=== PATIENT | male | born 1975 | race Caucasian/White ===

== ENCOUNTER 2019-11-02 11:56 | Outpatient (CLI) | payer OTHER, SELFPAY ==
[2019-11-02 12:24] LABS: Hematocrit 46.2 % (42.0-52.0); Hemoglobin 14.8 g/dL (14.0-18.0); Immature Platelet Fraction Pct 13.5 % (0.9-11.2); Mean Corpuscular Hemoglobin 29.4 pg (26-34); Mean Corpuscular Volume 91.8 fl (80-100); Mean Platelet Volume 13.3 fl (7.4-10.4); Platelet Count Result 243 k/mm3 (150-375); Red Blood Count 5.03 M/mm3 (4.6-6.20); Red Cell Distribution Width 14.1 % (11.5-14.5); White Blood Count 8.3 K/mm3 (4.5-10.0)
[2019-11-02 12:30] LABS: Hemoglobin A1C 5.3 % (<5.7)
[2019-11-02 12:33] LABS: Alanine Aminotransferase 32 U/L (4-50); Albumin Level 4.3 g/dL (3.5-5.1); Alkaline Phosphatase 102 U/L (38-126); Aspartate Amino Transferase 35 U/L (17-59); Bilirubin,Total 0.4 mg/dL (0.2-1.3); Blood Urea Nitrogen 14 mg/dL (9-20); Calcium 8.8 mg/dL (8.4-10.2); Carbon Dioxide 32 mmol/L (22-30); Chloride 102 mmol/L (98-107); Cholesterol 180 mg/dL (0-200); Estimated Glomerular Filt Rate > 60; Glucose 86 mg/dL (75-110); HDL Direct 39 mg/dL; Potassium 4.3 mmol/L (3.4-5.0); Sodium 138 mmol/L (137-145); Triglycerides 162 mg/dL (<150)
[2019-11-02 12:42] LABS: NT Pro B Type Natriuretic Pept 40 PG/ML (5-100)
[2019-11-02 12:44] LABS: LDL Cholesterol Direct 99 mg/dL
--- NOTE | 2019-11-02 12:55 | ECG_ITS ---
Measurements Intervals [place] Rate: 89 P: 54 SC: 182 QRS: 23 QRSD: 99 T: 114 QT: 377 QTc: 459 Interpretive Statements SINUS RHYTHM ST-T WAVE ABNORMALITY IN HIGH LATERAL LEADS- CONSIDER ISCHEMIA ABNORMAL ECG Electronically Signed On 11-02-2019 13:23:32 CDT by Ayad Villalba D.O.
[2019-11-02 13:04] LABS: Prostate Specific Antigen 0.8 ng/mL (< OR = 4.0)
[2019-11-02 13:19] LABS: Vitamin D 25 Hydroxy 17.3 ng/mL
== END 2019-11-02 11:57 | disposition home or self-care (01) ==
PROVIDERS: PCP Family Medicine; Visit Provider Nurse Practitioner Family
DX: R60.9 Edema, unspecified (principal); R06.02 Shortness of breath; R53.83 Other fatigue; Z13.29 Encounter for screening for other suspected endocrine disorder; Z12.5 Encounter for screening for malignant neoplasm of prostate; Z13.220 Encounter for screening for lipoid disorders; I10 Essential (primary) hypertension; R73.09 Other abnormal glucose; R07.89 Other chest pain
CPT/HCPCS: 36415; 80053; 80061; 82306; 83036; 83880; 84153; 84443; 85027; 85055; 93005; G0103

== ENCOUNTER 2019-12-06 09:02 | Outpatient (CLI) | payer OTHER, SELFPAY ==
--- NOTE | 2019-12-06 | EST_ITS ---
Patient Info Name: Feliz Omalley Age: 44 years : 1975 Gender: Male Ht: 71 in Wt: 440 lbs BSA: 3.28 m2 Exam Date: 12/06/2019 11:26 AM Exam Location: [facility] Stress Patient Status: Outpatient Admit Date: 12/06/2019 Staff Ordering Physician: Froylan Flower NP Attending Provider: Froylan Flower NP Exercise Technologist: Felipa Ayala RDCS Exercise Physician: Ayad Villalba DO Exam Type: CA stress amy w NM Study Info Indications R94.31 - Abnormal electrocardiogram ECG EKG R07.9 - Chest pain, unspecified Summary 1. 1. Negative lexiscan stress test for ischemic ST changes by ECG criteria. 2. 2. Baseline hypertension. 3. 3. Nuclear scan to follow and will be reported separately. Please correlate with it. 4. 4. Patient informed of the above results. Protocol: Lexiscan Stress ECG Details Stage: REST Duration (min): 5 min : 10 sec HR (bpm): 82 SBP (mmHg): 147 DBP (mmHg): 97 Stage: REST Duration (min): 8 min : 39 sec HR (bpm): 82 SBP (mmHg): 147 DBP (mmHg): 97 Stage: STAGE 1 Duration (min): 1 min : 0 sec HR (bpm): 89 SBP (mmHg): 151 DBP (mmHg): 83 Stage: RECOVERY Duration (min): 1 min : 0 sec HR (bpm): 89 SBP (mmHg): 141 DBP (mmHg): 87 Stage: RECOVERY Duration (min): 2 min : 0 sec HR (bpm): 86 SBP (mmHg): 141 DBP (mmHg): 87 Stage: RECOVERY Duration (min): 3 min : 0 sec HR (bpm): 85 SBP (mmHg): 150 DBP (mmHg): 86 Stage: RECOVERY Duration (min): 3 min : 4 sec HR (bpm): 86 SBP (mmHg): 150 DBP (mmHg): 86 Rest HR: 82 bpm Peak HR: 94 bpm Rest Sys BP: 147 mmHg Peak Sys BP: 151 mmHg Max Pred HR: 174 bpm % Max Pred HR: 54 % Target HR: 148 bpm Max RPP: 14,194 bpm*mmHg Termination Reason: Completed protocol Cardiac Symptoms: None Total Time: 1 min : 0 sec Rest [place] BP: 97 mmHg Peak [place] BP: 83 mmHg Total Dose: 0.4 mg Resting ECG Sinus rhythm. Stress ECG No ST changes. Arrhythmias None. Report Signatures
--- NOTE | ~2019-12-06 | NM_ITS ---
EXAMINATION: NM stress w perf spect multi DATE: 12/06/2019 14:24 INDICATION: Other chest pain. TECHNIQUE: Rest images were obtained following intravenous administration of 10.5 mCi Tc99m tetrofosm in ([employer]). The patient performed an exercise activity. At peak exercise, 32.7 mCi Tc99m tetrofosmi n ([employer]) was administered intravenously, and stress images were obtained. Data was reconstructed i nto short axis and horizontal and vertical long axis SPECT images. Gated SPECT images were also obtai nafisa. COMPARISON: None. FINDINGS: There is a moderate-sized, mild, fixed perfusion defect involving mid anterior and mid to b selvin anterolateral segments of left ventricle, consistent with infarct. No reversible component to mortensen ggest ischemia. There is no segmental wall motion abnormality. Left ventricular ejection fraction m easures 54%. IMPRESSION: 1. Moderate-sized area of mild infarct involving mid anterior and mid to basal anterolateral segments of left ventricle. 2. Normal left ventricular ejection fraction measuring 54%. Reviewed, dictated and finalized at location A.
== END 2019-12-06 09:03 | disposition home or self-care (01) ==
PROVIDERS: PCP Family Medicine; Visit Provider Nurse Practitioner Family
DX: R07.89 Other chest pain (principal); R94.31 Abnormal electrocardiogram [ECG] [EKG]; R60.0 Localized edema
CPT/HCPCS: 78452; 93017; A9502; J2785

== ENCOUNTER → 2021-09-04 01:55 | Outpatient (CLI) | payer OTHER, SELFPAY ==
[2021-09-04 13:52] LABS: SARS-CoV-2 RNA PCR Negative
== END ==
PROVIDERS: PCP Family Medicine; Visit Provider Internal Medicine Critical Care Medicine
DX: R68.89 Other general symptoms and signs (principal); Z20.822 Contact with and (suspected) exposure to COVID-19
CPT/HCPCS: C9803; U0003; U0005

== ENCOUNTER 2021-09-05 05:36 | Outpatient (CLI) | payer OTHER, SELFPAY ==
--- NOTE | 2021-09-15 11:11 | WPDSLEEPSTUD ---
Sleep Study Date of Study: 09/05/21 Ordering Provider: Negro Arechiga MD Interpreting Physician: Jayde Forrest MD Sleep Study Type: Split Polysomnogram Height: 1.8 m Weight: 204.117 kg Body Mass Index: 62.7 Neck Circumference (inches): 22.5 [place]: 21 Reason for Sleep Study Excessive daytime sleepiness, waking during the night, loud snoring and nocturia; history of SANDY 2013 * 09/09/2013 split night sleep study with BMI 48.8; Severe obstructive sleep apnea, AHI 123.9, loud continuous snoring and multiple and severe oxygen desaturations, lowest saturation during titration 68%, optimal pressure was CPAP 20 w 3 cm EPR Sleep History Feliz Omalley is a 46-year-old man who has poor quality sleep. He can only sleep a few hours at a time. He wakes up about once an hour until 3 or 4 in the morning and then he sleeps for a couple of hours continuously. He sleeps more during the day. 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 His sleep problem is completely incapacitating. He constantly awakens from sleep feeling short of breath. He rarely awakens at night with heartburn, belching or coughing. He frequently snores, constantly snores loudly enough that others complain about it. He rarely has trouble sleeping with a cold. He frequently wakes up gasping for breath at night. He constantly has breathing problems at night observed by others. He occasionally sweats excessively at night. He rarely notices his heart pounding or beating irregularly at night. He constantly falls asleep involuntarily as well as while driving. He occasionally has loss of muscle tone with strong emotion. He frequently has daytime difficulties due to excessive sleepiness. Does not feel paralyzed on waking or falling asleep. He frequently has vivid dreamlike scenes upon awakening or falling asleep. He does not feel afraid to go to sleep. He occasionally has nightmares. He occasionally remembers his dreams. He frequently has racing thoughts, feelings of sadness and depression. He occasionally feels anxiety. He occasionally has muscular tension. He frequently notices parts of his body jerking. He rarely kicks at night. He frequently has crawling aching feelings in his legs and frequently has leg pain during the night. He rarely has morning jaw pain. He does not grind his teeth during sleep. He constantly is bothered by pain during the day. He occasionally is awakened by pain during the night. He frequently wakes up feeling stiff in the morning. He constantly wakes up with sore achy muscles and pain in the neck and spine. He has fatigue and memory problems. Normal bedtime is between 3 and 4:00 a.m. falling asleep in seconds, waking multiple times throughout the night to use the bathroom, walk around and stretch. Some of the awakenings will last 10-15 minutes but on other occasions he may stay awake for 3 or 4 hours. He wakes sometimes between 10:00 a.m. and 3:00 p.m.. His schedule is the same on weekends. he takes naps in the afternoon and evening. A short nap may be refreshing. He is drowsy upon awakening. Habits: He consumes caffeine and recreational drugs. [facility] [place] Past Medical History Medical History (Updated 09/15/21 @ 14:24 by Jayde Forrest MD) Acute upper respiratory infection, unspecified Anxiety disorder, unspecified Body mass index (BMI) of 50-59.9 in adult Cellulitis of left leg Chloride, decreased level Chronic back pain Class 3 severe obesity due to excess calories without serious comorbidity in adult Depression with anxiety Dermoid cyst of left lower extremity Dietary counseling and surveillance (10/17/17) CARTWRIGHT (dyspnea on exertion) Edema Edema, unspecified Encounter for screening for malignant neoplasm of prostate Excessive daytime sleepiness Fatigue Hypertension Intermittent left-sided chest pain Lymphedema Major depressive disorder, single episode, unspecified Mixed hyperlipidemia Muscle cramping Numbness of extremity Obstructive sleep apnea [place]
[2021-09-15 14:43] VITALS: BMI 62.7
== END 2021-09-06 07:20 | disposition home or self-care (01) ==
LOC: ANHCSM 05:36
PROVIDERS: PCP Family Medicine; Visit Provider Family Medicine
DX: G47.00 Insomnia, unspecified (principal); G47.33 Obstructive sleep apnea (adult) (pediatric)
CPT/HCPCS: 95811

== ENCOUNTER 2022-06-17 10:45 | Outpatient (RCR) | payer OTHER, SELFPAY ==
--- NOTE | 2022-03-27 10:18 | PTOPEVAL1 ---
Assessment and note entered by Meg King, PT Evaluation Information Assessment Status Evaluation Diagnosis B LE lymphedema Onset 2 years Subjective Information gradual increase in size of legs over past 2 years unable to do stairs due to back, knee and hip pain; Reported Pain Level Pain Score Self Report Additional Pain Score Comments leg pain is always 15/10--deep throb pain, on fire ; needles in legs; sharp, burning pain in feet; legs being squeezed in a vice; also have pain in back, knees and hips; there are some days, cannot move due to pain; Assessment PT Clinical Summary Feliz has the diagnosis of B LE lymphedema. He reports they have increased in size over the past few years. And he has leg pain with decreased walking and activity level. His history includes back pain. He sometimes has family assist him with socks and shoes. With the evaluation, he has fibrotic tissue and skin changes over both knees and lower legs, with thick, starting of elephantitis skin; photo was taken of his legs: measurement of legs, circumferential from bottom of foot to 68 cm: R 956.6 cm and L 1015.7 cm. Skilled PT services are indicated for lymphedema treatment: complete decongestive care: multi layer compression wraps, intermittent compression pump, manual lymph drainage, education to pt for self care and management of lymphedema with recommendations for compression garment for him to obtain. Plan of Care Interventions Intermittent Compression,Lymphedema Compression Pump ,Manual Lymph Drainage,Patient/Caregiver Education, Therapeutic Activities,Therapeutic Exercise PT Services Indicated Yes Treatment Frequency and 0-3x/wk for 7 weeks, due to availability of Duration therapist, treatment is not able to begin for few weeks. These treatments will address the objective and functional deficits as defined above. The patient will be advanced safely and appropriately in order for the patient to progress towards his/her prior level of function. Additional exercises will be introduced and as well as a comprehensive home exercise program upon discharge, if needed, ?to ensure carryover of functional gains achieved in the clinic. This treatment plan has been reviewed and agreement upon by the patient.
--- NOTE | 2022-04-24 08:45 | PCPTNOTE ---
Patient did not show up for scheduled appointment this date. Called and left voicemail for Pt about missed appointment. Reminded Pt of upcoming appointment on 04/26/22 @ 08:00. Informed Pt to please call if he is unable to make it or has any questions or concerns at .
--- NOTE | 2022-04-26 11:25 | PCPTNOTE ---
pt did not show for today's appt; called him and left a voice mail, with reminder for Fri appt and if he did not show on Fri, or contact us, all his remaining appts would be canceled.
--- NOTE | 2022-04-29 07:38 | PCPTNOTE ---
Patient called & cancelled scheduled appointment after appointment time this date due to over sleeping. He stated he would be at his appointment on 05/01/22, @ 07:30.
--- NOTE | 2022-05-03 09:23 | PCPTNOTE ---
on 05-01-22: treatment appointment canceled by us due to therapist not available/ illness;
--- NOTE | 2022-05-10 10:37 | PCPTNOTE ---
pt called at his appt time, to cancel, did not give a reason why;
--- NOTE | 2022-05-15 09:52 | PTOPPROG ---
Assessment and note entered by Meg King, PT, CLT Evaluation Information Assessment Status Progress Diagnosis B LE lymphedema Onset 2 years Subjective Information Feliz reports: pain in legs 5-10/10- ache, sharp, dull, hurt; leg is a little smaller and not as red; therapy is helping; Assessment PT Clinical Summary Feliz has received 10 PT visits, from March 27 to today. Treatment was initiated for his L leg. He had 2 no show and 2 canceled appointments, and 1 canceled by us due to therapist ill. Compared to the initial evaluation, the circumferential measurement of his L leg has increased by 45.8 cm; the lower leg skin integrity has improved, with less redness and less fibrotic tissue; there continues to be thick, brownish color skin over medial lower leg and ankle. Education has been given for skin care, lymphedema management and progression of treatment. The goals were not achieved, his treatment has not been consistent enough to show progress. With the holidays over and he reports commitment to attending and participating in sessions, feel he will make gains in the next therapy sessions. Continue PT 3x/wk for lymphedema treatment/care. Plan of Care Interventions Intermittent Compression,Lymphedema Compression Pump ,Manual Lymph Drainage,Patient/Caregiver Education, Therapeutic Exercise PT Services Indicated Yes Treatment Frequency and 3x/wk for 8 weeks Duration These treatments will address the objective and functional deficits as defined above. The patient will be advanced safely and appropriately in order for the patient to progress towards his/her prior level of function. Additional exercises will be introduced and as well as a comprehensive home exercise program upon discharge, if needed, ?to ensure carryover of functional gains achieved in the clinic. This treatment plan has been reviewed and agreement upon by the patient.
--- NOTE | 2022-05-16 13:37 | PCPTNOTE ---
Patient called & cancelled scheduled appointment this date due to not being able to get off work.
--- NOTE | 2022-05-23 11:43 | PCPTNOTE ---
pt did not show for today's appt; called and left him voice mail message for reminder of tomorrow's appt;
--- NOTE | 2022-05-24 11:55 | PCPTNOTE ---
Patient did not show up for scheduled appointment this date. Called and left voicemail about missed appointment. Reminded of upcoming appointment on 05/28/22 @ 12:30, informed Pt to please call if he is unable to make it, left a call back number.
--- NOTE | 2022-06-06 13:02 | PCPTNOTE ---
Patient did not show up for scheduled appointment this date. Called and left voicemail about missed appointment. Reminded Pt of upcoming appointment Tomorrow, Friday06/07/22 @08:30.
--- NOTE | 2022-06-12 11:47 | PCPTNOTE ---
Patient did not show up for scheduled appointment this date. Attempted to call Pt several times, upon dialing number an automatic message stated You're call cannot be completed at this time. Please tray again later. Attempted on several different phones and came to the conclusion it is on the Pt's end.
--- NOTE | 2022-06-14 10:12 | PCPTNOTE ---
Patient called & cancelled scheduled appointment this date due to pt stating he thought his appointment wasn't until 10:15 and he was going to be running late. He stated he wouldn't be at the clinic until 10:25-10:30, cancelled appointment due to time constraints.
--- NOTE | 2022-06-18 11:25 | PCPTNOTE ---
This treatment is being continued on visit number [id number] Please see documentation on both accounts to view progress. Completed interventions, outcomes, and problems have been marked as Inactive to facilitate the copying of the Care plan routine for recurring accounts.
== END 2022-06-18 08:19 | disposition home or self-care (01) ==
LOC: ANHPT 10:45
PROVIDERS: PCP Family Medicine; Visit Provider Nurse Practitioner Family
DX: I89.0 Lymphedema, not elsewhere classified (principal)
CPT/HCPCS: 29581; 97016; 97140; 97161; 99199

== ENCOUNTER 2022-08-21 09:00 | Outpatient (RCR) | payer OTHER, SELFPAY ==
--- NOTE | 2022-06-18 11:34 | PCPTNOTE ---
This treatment is being continued on visit number [id number] Please see documentation on both accounts to view progress. Completed interventions, outcomes, and problems have been marked as Inactive to facilitate the copying of the Care plan routine for recurring accounts.
--- NOTE | 2022-06-19 11:13 | PCPTNOTE ---
Patient did not show up for scheduled appointment this date. Called and left voicemail about missed appointment. Informed Pt of upcoming appointment on Friday06/21/22 @ 11:15am.
--- NOTE | 2022-06-26 13:56 | PCPTNOTE ---
Patient did not show up for scheduled appointment this date. Called and left voice mail about missed appointment. Reminded of upcoming appointment on 06/28/22 @ 11:15a.
--- NOTE | 2022-07-05 11:35 | PCPTNOTE ---
Patient called & cancelled scheduled appointment this date due to work.
--- NOTE | 2022-07-08 11:14 | PCPTNOTE ---
Patient did not show up for scheduled appointment this date. Called, left voicemail for patient about missed appointment and reminded Pt of upcoming Re-eval on 07/10/22 @ 11:00.
--- NOTE | 2022-07-10 11:54 | PTOPPROG ---
Assessment and note entered by Meg King, PT, CLT Evaluation Information Assessment Status Progress Diagnosis B LE lymphedema Onset 2 years Subjective Information Feliz reports: took off the L compression wraps and R velcro garment 3 days ago- to let legs air out and see what happens without them on; PAIN: legs feel better, range 0-1/10 pain Assessment PT Clinical Summary Feliz has received a total of 24 PT sessions for R and L LE lymphedema. He has had 7 no shows and 2 canceled appointments since the last reevaluation. Compared to the last reevaluation: circumferential measurements of his legs have decreased: R by 40. 1 cm, to 916.5 cm and L by 96.3 cm, to 975.2 cm; improved skin integrity with less redness and less fibrotic tissue. His measurements have increased slightly, due to not having any compression on his legs for the past 3 days; His pain is less in his legs, now 1/10; He has been educated on self management of his lymphedema and velcro garment use. He has been using loaner garment until he orders his garments. He has the information to order his garments and stated that he would order in the next few days. Goals were partially met. Continue lymphedema therapy for completion of reduction of legs and for him to obtain the compression garments. Plan of Care Interventions Intermittent Compression,Lymphedema Compression Pump ,Manual Lymph Drainage,Patient/Caregiver Education, Therapeutic Exercise PT Services Indicated Yes Treatment Frequency and 0-3x/wk for 6 weeks, due to availability of Duration therapist, cannot resume therapy for 2 weeks These treatments will address the objective and functional deficits as defined above. The patient will be advanced safely and appropriately in order for the patient to progress towards his/her prior level of function. Additional exercises will be introduced and as well as a comprehensive home exercise program upon discharge, if needed, ?to ensure carryover of functional gains achieved in the clinic. This treatment plan has been reviewed and agreement upon by the patient.
--- NOTE | 2022-08-06 12:35 | PCPTNOTE ---
Pt's appointment on 08/05/22 was cancelled due to therapist being sick.
--- NOTE | 2022-08-21 09:49 | PTOPDC ---
Assessment and note entered by Meg King, PT, CLT Evaluation Information Assessment Status Discharge Diagnosis B LE lymphedema Onset 2 years Subjective Information Feliz reports: legs are doing good; the garments are comfortable, can wear them OK; when take them off, L leg swells more than R leg; do not have his garments yet, expects them to be in today; did not have any questions or concerns about today being his last day of therapy. PAIN: no pain in legs, but back pain 10/10, could not sleep last night; Reported Pain Level Pain Score 0: Self Report Assessment PT Clinical Summary Feliz has received a total of 34 PT sessions. Compared to the last reevaluation: circumferential measurements of legs: R decreased by 23.9 cm and L by 53.2 cm; skin continues to improve with less redness and less thick, elephantitis tissue; due to poor application of his compression garments, he continues to have fibrotic areas where garment was slipped or bunched; Education has been completed, but pt does not comply with skin care, remove and cleanse skin and garments. He reports he has ordered compression garments, but they are not here yet. He has been issued loaner garments from us, that are now overstretched and worn out. Discharge PT services, the goals were partially met. Plan of Care PT Services Indicated No
== END 2022-08-21 10:28 | disposition home or self-care (01) ==
LOC: ANHPT 09:00
PROVIDERS: PCP Family Medicine; Visit Provider Nurse Practitioner Family
DX: I89.0 Lymphedema, not elsewhere classified (principal)
CPT/HCPCS: 29581; 97016; 97140; 99199

== ENCOUNTER 2022-11-26 22:29 | Emergency (ER) | payer OTHER, SELFPAY ==
--- NOTE | ~2022-11-26 | CT_ITS ---
Clinical Indication: Dyspnea CT Scan of the Chest with Contrast: Technique: Contiguous sections were acquired throughout the chest after intravenous administration of 100 cc of Omnipaque 350. Dose reduction technique was used on this scan by utilizing automated expos ure control and iterative reconstruction technique. The dose-length product (DLP) was 951.11 mGy-cm. Findings: There is no evidence of any significant mediastinal, hilar or axillary lymphadenopathy. No large cent ral pulmonary embolus seen. Evaluation for smaller, more peripheral pulmonary emboli somewhat is subo ptimal due to timing of the contrast bolus. There is no evidence of aortic dissection or aneurysm. There is no evidence of pleural or pericardial effusion. The lungs are clear. No pulmonary nodules or infiltrates are noted. Images through the upper abdomen reveal no abnormalities. Impression: No central pulmonary embolus identified. Evaluation for smaller, more peripheral pulmonary emboli is suboptimal due to timing of the contrast bolus/technical factors. Clear lungs. Reviewed, dictated and finalized at [facility]. Impression: No central pulmonary embolus identified. Evaluation for smaller, more periphera l pulmonary emboli is suboptimal due to timing of the contrast bolus/technical factors. Clear lungs.
--- NOTE | ~2022-11-26 | XR_ITS ---
Clinical Indication: Shortness of breath PA and lateral of the chest: Comparison: None Findings: There is central congestive changes with minimal interstitial edema.. Cardiomediastinal si lhouette is within normal limits. Bones and soft tissues are unremarkable. Impression: Central congestive change and minimal interstitial edema. Reviewed, dictated and finalized at location . Impression: Central congestive change and minimal interstitial edema.
[2022-11-26 22:48] VITALS: BP 156/97; PULSE 88; RESP 14; TEMP 36.4; O2SAT 95
--- NOTE | 2022-11-26 22:48 | ECG_ITS ---
Measurements Intervals [place] Rate: 85 P: 60 CO: 192 QRS: 15 QRSD: 98 T: 91 QT: 360 QTc: 429 Interpretive Statements SINUS RHYTHM NONSPECIFIC T-WAVE ABNORMALITY- HIGH LATERAL LEADS BASELINE ARTIFACT- I, III, AVL, V4-V5 BORDERLINE ECG COMPARED TO ECG 11/02/2019 13:12:25 NO SIGNIFICANT CHANGES Electronically Signed On 11-27-2022 6:54:40 CDT by Ayad Villalba D.O.
--- NOTE | 2022-11-26 23:05 | PC.NURSE ---
Report given to BELKIS Choi
[2022-11-26 23:12] LABS: Basophils Percent Auto 0.4 % (0.2-1.2); Eosinophils Absolute Auto 0.2 K/mm3 (0-0.3); Eosinophils Percent Auto 2.2 % (0-4.4); Hematocrit 42.8 % (42.0-52.0); Hemoglobin 13.2 g/dL (14.0-18.0); Immature Granulocyte Absolute 0.12 K/mm3 (0.00-0.031); Immature Granulocyte Percent A 1.2 % (0-0.5); Lymphocytes Absolute Auto 1.47 K/mm3 (0.9-3.2); Lymphocytes Percent Auto 14.4 % (18.3-44.2); Mean Corpuscular HGB Conc 30.8 g/dl (32-36); Mean Corpuscular Hemoglobin 29.7 pg (26-34); Mean Corpuscular Volume 96.2 fl (80-100); Mean Platelet Volume 12.9 fl (7.4-10.4); Monocytes Absolute Auto 0.9 K/mm3 (0.1-0.6); Monocytes Percent Auto 8.3 % (2.6-8.5); Neutrophils Absolute Auto 7.5 K/mm3 (1.3-6.7); Neutrophils Percent Auto 73.5 % (45.5-73.1); Platelet Count Result 223 k/mm3 (150-375); Red Blood Count 4.45 M/mm3 (4.6-6.20); Red Cell Distribution Width 14.4 % (11.5-14.5); White Blood Count 10.2 K/mm3 (4.5-10.0)
[2022-11-26 23:26] LABS: Alanine Aminotransferase 32 U/L (6-50); Albumin Level 3.8 g/dL (3.5-5.1); Alkaline Phosphatase 73 U/L (38-126); Anion Gap 4 mmol/L (8-16); Aspartate Amino Transferase 32 U/L (17-59); Bilirubin,Total 0.3 mg/dL (0.2-1.3); Blood Urea Nitrogen 15 mg/dL (9-20); Calcium 8.7 mg/dL (8.4-10.2); Carbon Dioxide 35 mmol/L (22-30); Chloride 101 mmol/L (98-107); Estimated CRCL calculation 142 ml/min; Estimated Glomerular Filt Rate > 60; Glucose 109 mg/dL (65-110); Sodium 140 mmol/L (137-145)
[2022-11-26 23:30] LABS: Prothrombin Time 13.5 Seconds (11.1-14.7)
[2022-11-26 23:31] LABS: Partial Thromboplastin Time 34.2 SECONDS (22.3-36.8)
[2022-11-26 23:36] LABS: Appearance Urine Clear (Clear); Bacteria Urine None Seen /hpf; Bilirubin Urine Negative (Negative); Blood Urine Negative (Negative); Color Urine Yellow (Yellow); Glucose Urine UA Negative (Negative); Ketones Urine Negative (Negative); Leukocyte Esterase Ur 1+ LEU/UL (Negative); Nitrate Urine Negative (Negative); Non Pathogenic Casts 0-2; Protein Urine Negative (Negative); RBC Urine 0-2 /hpf (0-2); Specific Grav Ur 1.018 (1.001-1.035); Squamous Epithelial Cell Urine Occasional /hpf (Few); pH Urine 6.5 (5.0-9.0)
[2022-11-26 23:37] LABS: NT Pro B Type Natriuretic Pept 110 pg/mL (19.9-100); Troponin I < 0.012 ng/mL (0.000-0.034)
[2022-11-26 23:41] LABS: Add Urine Microscopic? YES
[2022-11-27 00:32] VITALS: O2SAT 95
[2022-11-27 00:42] VITALS: BP 160/106; PULSE 86; RESP 18; O2SAT 93
[2022-11-27 02:34] VITALS: BP 160/91; PULSE 81; RESP 18; O2SAT 94
--- NOTE | 2022-11-27 02:43 | ED.GENADULT ---
HPI - General Adult General Chief complaint: Shortness of Breath/Dyspnea Stated complaint: pain in legs, lymphedema Time Seen by Provider: 11/26/22 23:02 History of Present Illness HPI narrative: Is a 47-year-old gentleman who presents emergency department with chief complaint of increasing lower extremity edema and shortness of breath. The patient reports he has history of lymphedema of his lower extremities and reports that they have been more swollen lately. The patient reports that he is currently not on any diuretic as it causes leg cramps. Patient reports that he has had some increasing shortness of breath worse whenever he lays flat although this is more of because of discomfort in his lower extremities and back from laying in different positions. Related Data Allergies Allergy/AdvReac Type Severity Reaction Status Date / Time No Known Allergies Allergy Verified 11/27/22 00:32 Review of Systems Review of Systems: A 10 system review of systems was completed on the patient and is negative except for what is stated in the HPI. Nursing and ancillary documentation was reviewed. [facility] Past Medical History Medical History Acute upper respiratory infection, unspecified Anxiety disorder, unspecified Body mass index (BMI) of 50-59.9 in adult Cellulitis of left leg Chloride, decreased level Chronic back pain Class 3 severe obesity due to excess calories without serious comorbidity in adult Depression with anxiety Dermoid cyst of left lower extremity Dietary counseling and surveillance (10/17/17) CARTWRIGHT (dyspnea on exertion) Edema Edema, unspecified Encounter for screening for malignant neoplasm of prostate Excessive daytime sleepiness Fatigue Hypertension Intermittent left-sided chest pain Lymphedema Major depressive disorder, single episode, unspecified Mixed hyperlipidemia Muscle cramping Numbness of extremity Obstructive sleep apnea Pain in unspecified knee Sleep apnea Sleep apnea, unspecified Weight gain Family History Family History Father Bile duct cancer Mother No problems noted. Sibling No problems noted. 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 HEAD: Normocephalic, atraumatic. EYES: PERRLA and EOMI. ENT: Nares clear, no rhinorrhea or epistaxis. Mucous membranes moist. NECK: Supple. CHEST: Clear to auscultation. No respiratory distress. HEART: Regular rate and rhythm. No murmur heard. Normal peripheral pulses. ABDOMEN: Soft, nontender, nondistended, normal active bowel sounds. EXTREMITIES: Normal range of motion. Lymphedema present in bilateral lower extremities. SKIN: Warm, dry, no rash. NEURO: No focal deficits. Alert and oriented x3. PSYCH: Normal mood and affect. Course Vital Signs Vital signs: Vital Signs Temperature 36.4 C 11/26/22 22:48 Pulse Rate 88 11/26/22 22:48 Respiratory Rate 14 11/26/22 22:48 Blood Pressure 156/97 H 11/26/22 22:48 Pulse Oximetry 95 11/26/22 22:48 Oxygen Delivery Room A
[2022-11-27] MEDS: FUROSEMIDE INJ 40 MG/4 ML VIAL 20 MG IV PUSH (03:02)
== END 2022-11-27 03:20 | disposition home or self-care (01) ==
PROVIDERS: Emergency Provider Emergency Medicine; PCP Family Medicine
DX: I89.0 Lymphedema, not elsewhere classified (principal); E66.01 Morbid (severe) obesity due to excess calories; Z68.44 Body mass index [BMI] 60.0-69.9, adult; I10 Essential (primary) hypertension; E78.2 Mixed hyperlipidemia; G47.33 Obstructive sleep apnea (adult) (pediatric); G47.30 Sleep apnea, unspecified; Z79.85 Long-term (current) use of injectable non-insulin antidiabetic drugs
CPT/HCPCS: 36415; 71046; 71275; 80053; 81001; 83880; 84484; 85025; 85610; 85730; 87086; 87088; 93005; 96374; 99284; J1940; Q9967

== ENCOUNTER 2023-03-17 15:19 | Emergency (ER) | payer OTHER, SELFPAY ==
--- NOTE | ~2023-03-17 | XR_ITS ---
EXAM: XR hip RT min 2V DATE: 03/17/2023 16:13 HISTORY: KNI. RT HIP PAIN X 2 WEEKS. . COMPARISON: None available. FINDINGS: Normal mineralization. No fracture or dislocation. No lytic or blastic lesion. Chronic cliff earing asymmetric alignment of the pubic symphysis. Superior joint space narrowing in the right hip. Right greater trochanter enthesopathy. No erosion or periosteal change. Soft tissues within normal li mits. IMPRESSION: No acute osseous finding in the right hip Mild right hip osteoarthritis and greater trochanteric enthesopathy. Chronic appearing asymmetric alignment of the pubic symphysis, correlate with history of remote pelvi c trauma. Reviewed, dictated and finalized at location K. KSMITH APPRENTICE IMPRESSION: No acute osseous finding in the right hip Mild right hip osteoarthritis and greater trochanteric enthesopathy. Chronic appearing asymmetric alignment of the pubic symphysis, correlate with h istory of remote pelvic trauma.
[2023-03-17 15:26] VITALS: BP 155/73; PULSE 84; RESP 22; TEMP 37.1; O2SAT 96
--- NOTE | 2023-03-17 16:02 | ED.EXTPRO ---
HPI - Extremity Problem General Chief complaint: Extremity Problem,Nontraumatic Stated complaint: right hip pain Source: patient Mode of arrival: ambulatory Limitations: no limitations History of Present Illness HPI Narrative: 47 y/o male with hx obesity, diabetes, lymphedema, presented for c/o right hip pain for 2 weeks. Pain worsening over the past few days. Pain started in the hip flexor, now radiates to right groin and side of hip. Pain worse with movement. States he rest it feels like a dull throb, feels sharp and stabbing with movement. Reports difficulty with driving and using the pedals. Has had therapy with chiropractor, without relief. Also no improvement with otc meds or ice/heat etc. Denies pain radiating down in a extremity, numbness, tingling, or weakness. Denies injury. Related Data Home Medications Medication Instructions Recorded Confirmed duloxetine 30 mg capsule,delayed 30 mg PO DAILY 03/17/23 03/17/23 release Allergies Allergy/AdvReac Type Severity Reaction Status Date / Time No Known Allergies Allergy Verified 03/17/23 15:46 Review of Systems Review of Systems: CONSTITUTIONAL: Denies body aches, fever, chills EYES: Denies visual changes ENT: Denies rhinorrhea, congestion CARDIOVASCULAR: Denies chest pain, palpitations RESPIRATORY: Denies cough or dyspnea. GASTROINTESTINAL: Denies abdominal pain, nausea, vomiting, or diarrhea. SKIN: Denies rash, itching, or wounds. MUSCULOSKELETAL: reports right hip pain Denies back pain, or myalgia. NEUROLOGIC: Denies headache, numbness, tingling, or weakness. All systems reviewed & are unremarkable except as noted in HPI and below PMFSH Past Medical History Medical History Acute upper respiratory infection, unspecified Anxiety disorder, unspecified Cellulitis of left leg Chloride, decreased level Chronic back pain Class 3 severe obesity due to excess calories without serious comorbidity in adult Depression with anxiety Dermoid cyst of left lower extremity Dietary counseling and surveillance (10/17/17) CARTWRIGHT (dyspnea on exertion) Edema Edema, unspecified Encounter for screening for malignant neoplasm of prostate Excessive daytime sleepiness Fatigue Hypertension Intermittent left-sided chest pain Lymphedema Major depressive disorder, single episode, unspecified Mixed hyperlipidemia Muscle cramping Numbness of extremity Obstructive sleep apnea Pain in unspecified knee Sleep apnea Sleep apnea, unspecified Weight gain Family History Family History Father Bile duct cancer Mother No problems noted. Sibling No problems noted. 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 Please see nursing chart for further information. There is no relevant family history pertinent to the presenting complaint Exam Narrative: GENERAL: appears in pain, and in no acute distress. HEST: Speaks in full sentences. No respiratory distress. HEART: Regular rate and rhythm. Normal and equal peripheral
== END 2023-03-17 16:40 | disposition home or self-care (01) ==
PROVIDERS: Emergency Provider Nurse Practitioner Family; PCP Family Medicine
DX: M25.551 Pain in right hip (principal); E66.01 Morbid (severe) obesity due to excess calories; Z68.44 Body mass index [BMI] 60.0-69.9, adult; I10 Essential (primary) hypertension; E78.2 Mixed hyperlipidemia
CPT/HCPCS: 73502; 99213; G0463

== ENCOUNTER 2023-03-24 10:32 | Emergency (ER) | payer OTHER, SELFPAY ==
--- NOTE | ~2023-03-24 | XR_ITS ---
EXAMINATION: XR hip RT min 2V DATE: 03/24/2023 12:55 INDICATION: Right hip pain. TECHNIQUE: 2 views of right hip were obtained. COMPARISON: Right hip radiographs 03/17/2023 FINDINGS: Bone alignment is normal. No fracture. There is mild right hip osteoarthritis. IMPRESSION: 1. Mild right hip osteoarthritis. Reviewed, dictated and finalized at location A. R AND REGULATOR SHOP SUPERVISOR
[2023-03-24 10:33] VITALS: BP 219/104; PULSE 90; RESP 16; TEMP 37; O2SAT 97
--- NOTE | 2023-03-24 12:17 | ED.GENADULT ---
[facility] - General Adult General Chief complaint: Extremity Problem,Nontraumatic Stated complaint: HIP PAIN, INCREASED THIRST,HUNGER Time Seen by Provider: 03/24/23 11:02 Source: patient Mode of arrival: ambulatory Limitations: no limitations History of Present Illness HPI narrative: This is a 47-year-old male with PMH of HTN who presents to the ED with multiple complaints. Reports right hip pain ongoing for the past month and worse today. States that it is worse as the day progresses and worse with weightbearing. He also feels that it is worse with range of motion of the hip. States the pain is primarily in the right groin area and radiates to the femur and lateral hip. States he feels like a muscle was pulled in the right thigh area. Denies any lower extremity pain, numbness or paresthesias. Denies testicle pain, swelling or any urinary symptoms. Additional complaints of polydipsia, polyuria, polyphagia for the past several days. Reports that he feels like he cannot drink enough water or urinate enough times for relief. States he is only on medications for high blood pressure. He also notes history of lymphedema to the lower extremities and feels that his swelling has not changed. Denies any fevers, chills, nausea, vomiting, further site of pain or injury. Related Data Home Medications Medication Instructions Recorded Confirmed duloxetine 30 mg capsule,delayed 30 mg PO DAILY 03/17/23 03/17/23 release Allergies Allergy/AdvReac Type Severity Reaction Status Date / Time No Known Allergies Allergy Verified 03/17/23 15:46 Review of Systems Review of Systems: All systems as dictated in [facility] Past Medical History Medical History Acute upper respiratory infection, unspecified Anxiety disorder, unspecified Cellulitis of left leg Chloride, decreased level Chronic back pain Class 3 severe obesity due to excess calories without serious comorbidity in adult Depression with anxiety Dermoid cyst of left lower extremity Dietary counseling and surveillance (10/17/17) CARTWRIGHT (dyspnea on exertion) Edema Edema, unspecified Encounter for screening for malignant neoplasm of prostate Excessive daytime sleepiness Fatigue Hypertension Intermittent left-sided chest pain Lymphedema Major depressive disorder, single episode, unspecified Mixed hyperlipidemia Muscle cramping Numbness of extremity Obstructive sleep apnea Pain in unspecified knee Sleep apnea Sleep apnea, unspecified Weight gain Family History Family History Father Bile duct cancer Mother No problems noted. Sibling No problems noted. 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 HEAD: Normocephalic, atraumatic. EYES: PERRLA and EOMI. ENT: Nares clear, no rhinorrhea or epistaxis. Mucous membranes moist. Oropharynx without tonsillar hypertrophy exudate or other lesions. NECK: Supple. No adenopathy or masses. CHEST: No respiratory distress. Clear to auscultation. No wheezes rales or rhonchi HEART: Regular rate and rhythm. No murmur heard. Normal peripheral pulses. ABDOMEN: Soft, nontender, nondi
[2023-03-24] MEDS: KETOROLAC 30 MG/ML VIAL (*BKC) IV PUSH (12:39)
--- NOTE | 2023-03-24 12:45 | PC.NURSE ---
pt unable to stay awake during iv start. pt has sleep apnea. when questioned states he has a cpap but doesnt like it. pt c/o not sleeping well
[2023-03-24 13:18] LABS: Basophils Percent Auto 0.3 % (0.2-1.2); Eosinophils Absolute Auto 0.2 K/mm3 (0-0.3); Eosinophils Percent Auto 1.3 % (0-4.4); Hematocrit 45.9 % (42.0-52.0); Immature Granulocyte Percent A 0.8 % (0-0.5); Immature Platelet Fraction Pct 18.9 % (0.9-11.2); Lymphocytes Absolute Auto 1.78 K/mm3 (0.9-3.2); Lymphocytes Percent Auto 14.9 % (18.3-44.2); Mean Corpuscular HGB Conc 30.5 g/dl (32-36); Mean Corpuscular Hemoglobin 28.1 pg (26-34); Mean Corpuscular Volume 92.2 fl (80-100); Mean Platelet Volume 13.2 fl (7.4-10.4); Monocytes Absolute Auto 1.3 K/mm3 (0.1-0.6); Monocytes Percent Auto 10.9 % (2.6-8.5); Neutrophils Absolute Auto 8.5 K/mm3 (1.3-6.7); Neutrophils Percent Auto 71.8 % (45.5-73.1); Platelet Count Result 203 k/mm3 (150-375); Red Blood Count 4.98 M/mm3 (4.6-6.20); Red Cell Distribution Width 15.1 % (11.5-14.5); White Blood Count 11.9 K/mm3 (4.5-10.0)
[2023-03-24 13:36] LABS: Appearance Urine Clear (Clear); Bacteria Urine None Seen /hpf; Bilirubin Urine Negative (Negative); Blood Urine Negative (Negative); Color Urine Yellow (Yellow); Glucose Urine UA Negative (Negative); Ketones Urine Trace mg/dL (Negative); Leukocyte Esterase Ur 1+ LEU/UL (Negative); Nitrate Urine Negative (Negative); Protein Urine 1+ mg/dL (Negative); RBC Urine 0-2 /hpf (0-2); Specific Grav Ur 1.025 (1.001-1.035); Squamous Epithelial Cell Urine None seen /hpf (Few); WBC Urine 21-50 /hpf
[2023-03-24 14:02] LABS: Add Urine Microscopic? YES
[2023-03-24 14:24] LABS: Alanine Aminotransferase 39 U/L (6-50); Albumin Level 3.9 g/dL (3.5-5.1); Alkaline Phosphatase 85 U/L (38-126); Anion Gap 8 mmol/L (8-16); Aspartate Amino Transferase 29 U/L (17-59); Bilirubin,Total 0.7 mg/dL (0.2-1.3); Blood Urea Nitrogen 20 mg/dL (9-20); Calcium 8.8 mg/dL (8.4-10.2); Carbon Dioxide 33 mmol/L (22-30); Chloride 99 mmol/L (98-107); Estimated CRCL calculation 142 ml/min; Estimated Glomerular Filt Rate > 60; Glucose 95 mg/dL (65-110); Potassium 4.1 mmol/L (3.4-5.0); Sodium 140 mmol/L (137-145)
[2023-03-24 14:44] VITALS: BP 178/86; PULSE 89; RESP 16; O2SAT 98
== END 2023-03-24 14:45 | disposition home or self-care (01) ==
PROVIDERS: Emergency Provider Physician Assistant; PCP Family Medicine
DX: M25.551 Pain in right hip (principal); M16.11 Unilateral primary osteoarthritis, right hip; I10 Essential (primary) hypertension; E78.2 Mixed hyperlipidemia; I89.0 Lymphedema, not elsewhere classified; E66.01 Morbid (severe) obesity due to excess calories; G47.33 Obstructive sleep apnea (adult) (pediatric); Z68.44 Body mass index [BMI] 60.0-69.9, adult; Z77.22 Contact with and (suspected) exposure to environmental tobacco smoke (acute) (chronic)
CPT/HCPCS: 36415; 73502; 80053; 81001; 85025; 85055; 87086; 87088; 99284; J1885

== ENCOUNTER 2023-09-26 21:06 | Emergency (ER) | payer OTHER, SELFPAY ==
[2023-09-26] VITALS (12 sets, daily range): BP systolic 125–186; BP diastolic 86–140; PULSE 76–87; RESP 15–30; TEMP 36.7; O2SAT 86–97
--- NOTE | ~2023-09-26 | XR_ITS ---
EXAMINATION: XR chest 1V portable DATE: 09/26/2023 21:37 INDICATION: Chest pain. TECHNIQUE: A single frontal view of the chest was obtained on 2 radiographs. COMPARISON: Chest 2 views 11/26/2022 FINDINGS: Sensitivity is decreased by obesity. There is no pneumonia, pleural effusion, or pneumothor ax. Cardiomegaly is noted. IMPRESSION: 1. Cardiomegaly. Reviewed, dictated and finalized at location E. IMPRESSION: 1. Cardiomegaly.
--- NOTE | 2023-09-26 21:17 | ECG_ITS ---
SEE SCANNED COPY FOR CONFIRMED REPORT MTDD
[2023-09-26] MEDS: ASPIRIN 81 MG CHEWABLE TABLET 324 MG PO (21:25)
[2023-09-26 21:34] LABS: Basophils Percent Auto 0.4 % (0.2-1.2); Eosinophils Absolute Auto 0.4 K/mm3 (0-0.3); Eosinophils Percent Auto 3.3 % (0-4.4); Hematocrit 46.4 % (42.0-52.0); Hemoglobin 14.9 g/dL (14.0-18.0); Immature Granulocyte Absolute 0.05 K/mm3 (0.00-0.031); Immature Granulocyte Percent A 0.5 % (0-0.5); Immature Platelet Fraction Pct 15.5 % (0.9-11.2); Lymphocytes Percent Auto 16.9 % (18.3-44.2); Mean Corpuscular HGB Conc 32.1 g/dl (32-36); Mean Corpuscular Hemoglobin 28.9 pg (26-34); Mean Corpuscular Volume 89.9 fl (80-100); Mean Platelet Volume 13.4 fl (7.4-10.4); Monocytes Percent Auto 9.6 % (2.6-8.5); Neutrophils Absolute Auto 7.4 K/mm3 (1.3-6.7); Neutrophils Percent Auto 69.3 % (45.5-73.1); Platelet Count Result 233 k/mm3 (150-375); Red Blood Count 5.16 M/mm3 (4.6-6.20); Red Cell Distribution Width 13.8 % (11.5-14.5); White Blood Count 10.7 K/mm3 (4.5-10.0)
[2023-09-26 21:40] LABS: Alanine Aminotransferase 22 U/L (6-50); Albumin Level 4.3 g/dL (3.5-5.1); Alkaline Phosphatase 85 U/L (38-126); Anion Gap 6 mmol/L (4-12); Aspartate Amino Transferase 30 U/L (17-59); Bilirubin,Total 0.6 mg/dL (0.2-1.3); Blood Urea Nitrogen 14 mg/dL (9-20); Carbon Dioxide 28 mmol/L (22-30); Chloride 104 mmol/L (98-107); Estimated CRCL calculation 141 ml/min; Estimated Glomerular Filt Rate > 60; Glucose 93 mg/dL (65-110); Lipase 119 U/L (23-300); Potassium 3.6 mmol/L (3.4-5.0); Sodium 138 mmol/L (137-145)
[2023-09-26 21:44] LABS: INR 1.1; Partial Thromboplastin Time 36.6 Seconds (22.3-36.8); Prothrombin Time 14.8 Seconds (11.1-14.7)
--- NOTE | 2023-09-26 22:26 | ED.CHESTPAIN ---
HPI - Chest Pain General Chief Complaint: Chest Pain Stated Complaint: chest pain Time Seen by Provider: 09/26/23 21:10 History of Present Illness HPI narrative: 48-year-old male with history of obesity, uncontrolled hypertension, lymphedema presented emergency department for evaluation of chest pain. Patient states he has had chest pain for the last few weeks but states that it felt little worse today. Patient states he has had a pressure for last few weeks but the pain felt more increasingly sharp today. Patient is post be on medications for blood pressure but states he has not been taking them for the last few days. Patient denies any prior history of HI. denies any worsening shortness of breath. Related Data Allergies Allergy/AdvReac Type Severity Reaction Status Date / Time No Known Allergies Allergy Verified 03/27/23 08:39 Review of Systems Review of Systems: All systems reviewed & are unremarkable except as noted in HPI and below PMFSH Past Medical History Medical History Acute upper respiratory infection, unspecified Anxiety disorder, unspecified Cellulitis of left leg Chloride, decreased level Chronic back pain Class 3 severe obesity due to excess calories without serious comorbidity in adult Depression with anxiety Dermoid cyst of left lower extremity Dietary counseling and surveillance (10/17/17) CARTWRIGHT (dyspnea on exertion) Edema Edema, unspecified Encounter for screening for malignant neoplasm of prostate Excessive daytime sleepiness Fatigue Hypertension Intermittent left-sided chest pain Lymphedema Major depressive disorder, single episode, unspecified Mixed hyperlipidemia Muscle cramping Numbness of extremity Obstructive sleep apnea Pain in unspecified knee Sleep apnea Sleep apnea, unspecified Weight gain Family History Family History Father Bile duct cancer Mother No problems noted. Sibling No problems noted. 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 HEAD: normocephalic, atraumatic. EYES: PERRLA/EOMI, conjunctivae clear. NOSE: Normal no drainage EARS:TMS clear with good light reflex. THROAT: Pharynx clear, no exudate. NECK: Supple. No adenopathy, no masses. RESPIRATORY: Airway patent, respirations nonlabored. Clear to auscultation bilaterally, no rales, rhonchi, wheezing. CARDIOVASCULAR: Regular rate and rhythm without murmurs rubs or gallops. ABDOMINAL: Soft, nontender, nondistended, normal bowel sounds MUSCULOSKELETAL: Reproducible left-sided chest tenderness to palpation. Bilateral lymphedema which patient states is unchanged from baseline NEURO: Alert. Cranial nerves II through XII intact. Grossly intact SKIN: Warm, dry. Normal Color Course Vital Signs Vital signs: Vital Signs Temperature 98.0 F 09/26/23 21:10 Pulse Rate 87 09/26/23 21:10 Respiratory Rate 20 09/26/23 21:10 Blood Pressure 179/101 H 09/26/23 21:10 Pulse Oximetry 97 09/26/23 21:10 Oxygen Delivery Room Air 09/26/23 21:10 Temperature 98.0 F 09/26/23 21:10 Pulse Rate 77 09/27/23
[2023-09-26] MEDS: MORPHINE SULFATE (*CRX) 4 MG/ML INJ IV PUSH (22:28)
[2023-09-27 00:30] VITALS: BP 155/94; PULSE 77; RESP 14; O2SAT 94
[2023-09-27 01:16] VITALS: O2SAT 78; O2SAT 96
[2023-09-27 01:31] VITALS: O2SAT 75
[2023-09-27 01:32] VITALS: O2SAT 99
[2023-09-27 01:38] LABS: Troponin I 0.019 ng/mL (0.000-0.034)
--- NOTE | 2023-09-28 00:50 | ECG_ITS ---
SEE SCANNED COPY FOR CONFIRMED REPORT MTDD
== END 2023-09-27 02:02 | disposition home or self-care (01) ==
PROVIDERS: Emergency Provider Emergency Medicine; PCP Family Medicine
DX: R07.9 Chest pain, unspecified (principal); I10 Essential (primary) hypertension; E66.9 Obesity, unspecified; Z68.44 Body mass index [BMI] 60.0-69.9, adult; F41.9 Anxiety disorder, unspecified; G47.33 Obstructive sleep apnea (adult) (pediatric); I89.0 Lymphedema, not elsewhere classified
CPT/HCPCS: 36415; 71045; 80053; 83690; 84484; 85025; 85055; 85610; 85730; 93005; 96374; 99284; A9270; J2270

== ENCOUNTER 2023-12-18 11:22 | Emergency (ER) | payer OTHER, SELFPAY ==
[2023-12-18 11:45] VITALS: BP 194/114; PULSE 86; RESP 20; TEMP 36.2; O2SAT 96
--- NOTE | 2023-12-18 12:18 | ED.SKABFB ---
HPI - Skin/Abscess/Foreign Bdy General Chief complaint: Skin/Abscess/Foreign Body Stated complaint: Cyst Right Leg Time Seen by Provider: 12/18/23 11:58 Source: patient, RN notes reviewed and old records reviewed Mode of arrival: ambulatory Limitations: no limitations History of Present Illness HPI narrative: 48 year old male who [facility] to [facility] with complaints of abscess to the upper aspect of his anterior right thigh for the past 2 days. Patient reports that area has had increasing redness around whitish lesion in the center of wound which measures 1.5cm with induration of tissue warmth and redness. no fluctuant tissue noted. Patient reports that he did squeeze on area yesterday with no purulent drainage noted has noted some wet area on his shorts from the wound. Patient states that he has applied warm compresses and he has applied some Lidocaine cream to wound area for pain. MD complaint: abscess/boil Onset (ago): day(s) (2) Location: RLE (upper anterior right thigh) Severity: severe Severity scale (1-10): 10 Quality: sharp and constant Pain Consistency: constant Exacerbating factors: palpation Treatments prior to arrival: other (warm compresses, lidocaine ointment for the pain) Related Data Allergies Allergy/AdvReac Type Severity Reaction Status Date / Time No Known Allergies Allergy Verified 12/18/23 11:43 Review of Systems Review of Systems: CONSTITUTIONAL: Denies fever, chills, or sweats. CARDIOVASCULAR: Denies chest pain, palpitations, or edema. RESPIRATORY: Denies cough or dyspnea. GASTROINTESTINAL: Denies abdominal pain, nausea, vomiting SKIN: Reports redness and swelling with 1.5cm round white lesion with surrounding redness and pain. Denies any noted purulent drainage, has noted some fluid oozing from area at times, pain sharp and constant MUSCULOSKELETAL: Denies myalgia. NEUROLOGIC: Denies headache, numbness All systems reviewed & are unremarkable except as noted in HPI and below PMFSH Past Medical History Medical History (Updated 12/18/23 @ 15:30 by Estella Estrada NP) Acute upper respiratory infection, unspecified Anxiety disorder, unspecified Cellulitis of left leg Chloride, decreased level Chronic back pain Class 3 severe obesity due to excess calories without serious comorbidity in adult Depression with anxiety Dermoid cyst of left lower extremity Dietary counseling and surveillance (10/17/17) CARTWRIGHT (dyspnea on exertion) Edema Edema, unspecified Encounter for screening for malignant neoplasm of prostate Excessive daytime sleepiness Fatigue Hypertension Intermittent left-sided chest pain Lymphedema Major depressive disorder, single episode, unspecified Mixed hyperlipidemia Muscle cramping Numbness of extremity Obstructive sleep apnea Pain in unspecified knee Sleep apnea Sleep apnea, unspecified Weight gain Surgical History Surgical History (Updated 12/18/23 @ 15:30 by Estella Estrada NP) History of tonsillectomy Family History Family History Father Bile duct cancer Mother No problems noted. Sibling No problems noted. 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
[2023-12-18 12:35] VITALS: BP 196/117
== END 2023-12-18 12:35 | disposition home or self-care (01) ==
PROVIDERS: Emergency Provider Registered Nurse; PCP Family Medicine
DX: L02.415 Cutaneous abscess of right lower limb (principal); F12.90 Cannabis use, unspecified, uncomplicated; E66.01 Morbid (severe) obesity due to excess calories; Z68.42 Body mass index [BMI] 45.0-49.9, adult; I10 Essential (primary) hypertension; E78.2 Mixed hyperlipidemia
CPT/HCPCS: 99213; G0463